=== PATIENT | female | born 1995 | race Caucasian/White ===

== ENCOUNTER 2019-10-18 09:56 | Emergency (ER) | payer BC ==
[2019-10-18 10:03] VITALS: BP 137/89; PULSE 98; RESP 18; TEMP 98.2
[2019-10-18] MEDS ORDERED: diphenhydrAMINE 50 MG CAP PO STA (10:27)
[2019-10-18] MEDS ORDERED: predniSONE 50 MG TAB PO STA (10:27)
--- NOTE | 2019-10-18 10:33 | ED ---
General Adult HPI - General Chief complaint: Allergic Reaction Stated complaint: rash Time Seen by Provider: 10/18/19 10:04 Source: patient, RN notes reviewed Mode of arrival: ambulatory Limitations: no limitations - History of Present Illness Initial comments: 24-year-old female presents to the emergency department for ALLERGIC reaction. Patient was sent over by [email or web address]. Patient started several different medications less than 2 weeks ago when she saw dermatology. They started her on unknown medications for acne, eczema, psoriasis, and candidiasis. Patient states that she started to get a rash 2 days ago and last night started to have swelling of her lips. Patient went to [facility] today and was sent to the emergency room. Patient denies any shortness of breath or slowing of the throat. Denies any difficulty breathing. There is no stridor or drooling.Patient has no other complaints at this time including shortness of breath, chest pain, abdominal pain, nausea or vomiting, headache, or visual changes. - Related Data Previous Rx's Medication Instructions Recorded predniSONE 50 mg PO DAILY #5 tablet 10/18/19 Allergies Allergy/AdvReac Type Severity Reaction Status Date / Time No Known Allergies Allergy Verified 10/18/19 09:58 Review of Systems ROS Statement: Those systems with pertinent positive or pertinent negative responses have been documented in the HPI. ROS Other: All systems not noted in ROS Statement are negative. Past Medical History Past Medical History: No Reported History History of Any Multi-Drug Resistant Organisms: None Reported Past Surgical History: No Surgical Hx Reported Past Psychological History: No Psychological Hx Reported Smoking Status: Never smoker Past Alcohol Use History: None Reported Past Drug Use History: None Reported General Exam Limitations: no limitations General appearance: alert, in no apparent distress Head exam: Present: atraumatic, normocephalic, normal inspection Eye exam: Present: normal appearance, PERRL, EOMI. Absent: scleral icterus, conjunctival injection ENT exam: Present: normal exam, mucous membranes moist. Absent: normal oropharynx (minimal edema of lips, no swelling of tongue or throat) Neck exam: Present: normal inspection, full ROM. Absent: tenderness, meningismus, lymphadenopathy Respiratory exam: Present: normal lung sounds bilaterally. Absent: respiratory distress, wheezes, rales, rhonchi, stridor Cardiovascular Exam: Present: regular rate, normal rhythm, normal heart sounds. Absent: systolic murmur, diastolic murmur, rubs, gallop, clicks GI/Abdominal exam: Present: soft, normal bowel sounds. Absent: distended, tenderness, guarding, rebound, rigid Skin exam: Present: rash (pt has hive like reaction over trunk and extremities) Course Vital Signs 10/18/19 09:58 Temperature 98.2 F Pulse Rate 98 Respiratory 18 Rate Blood Pressure 137/89 O2 Sat by Pulse 97 Oximetry Medical Decision Making - Medical Decision Making Patient is resting comfortably. No stridor, hoarseness, or drooling. Minimal edema of the lips. No swelling of the tongue or throat. Hives-like reaction over her torso and extremities. Patient was started on several different medications that she does not know the name of about 1.5 weeks ago. I discussed with patient that it is impossible to tell which medication cause this reaction and to discontinue all of her new medications. Patient will take prednisone and Benadryl. She will follow up with primary care. If she has any worsening symptoms she will return here it was discussed with her in depth. Disposition Clinical Impression: Rash Disposition: HOME SELF-CARE Condition: Good Instructions (If sedation given, give patient instructions): General Allergic Reaction (ED) Additional Instructions: Please stop all new medications. Take 25 - 50 mg of Benadryl every 6 hours. Take Prednisone as directed. If you have any worsening swelling of the face or shortness of breath or throat swelling return to the emergency room. Prescriptions: predniSONE 50 mg PO DAILY #5 tablet Is patient prescribed a controlled substance at d/c from ED?: No Referrals: Shayla Franco MD [REFERRING] - 1-2 days Time of Disposition: 10:27
== END 2019-10-18 10:40 | disposition home or self-care (01) ==
LOC: EC 09:56
DX: R21 Rash and other nonspecific skin eruption (principal); R60.0 Localized edema
CPT/HCPCS: 99283; J7512